=== PATIENT | female | born 1990 | race Caucasian/White ===

== ENCOUNTER 2023-05-01 17:43 | Outpatient (CLI) | payer OTHER | END 2023-05-01 18:58 | disposition home or self-care (01) | LOC: NST 17:43 | PROVIDERS: ATTEND Obstetrics & Gynecology Maternal & Fetal Medicine | DX: Z34.83 Encounter for supervision of other normal pregnancy, third trimester (principal) ==

== ENCOUNTER 2023-05-11 13:30 | Inpatient (IN) | payer OTHER ==
[~2023-05-11] VITALS: Ht 167.6 cm; Wt 3.2 kg
[2023-05-16] MEDS ORDERED: PRENATAL TABLE1 EAC1 PO (05:41)
[2023-05-16] MEDS ORDERED: IRON325 MG PO (05:41)
[2023-05-16 06:18] LABS: HEMATOCRIT 37.6 % (36.0-45.00); HEMOGLOBIN 12.8 g/dL (12.0-15.00); MEAN CELL VOLUME 83.3 fL (80.00-100.00); MEAN CORPUSCULAR HEMOGLOBIN 28.4 pg (27.00-32.0); PLATELET COUNT 174 K/uL (150-450); RED BLOOD COUNT 4.52 M/uL (4.00-6.00); RED CELL DISTRIBUTION WIDTH 16.8 % (11.5-14.5)
[2023-05-16 06:31] LABS: URINE APPEARANCE Clear; URINE BILIRRUBIN Negative (NEGATIVE); URINE BLOOD Trace; URINE COLOR Yellow; URINE GLUCOSE Negative (NEGATIVE); URINE LEUKOCYTE Negative; URINE NITRATE Negative; URINE UROBILINOGEN 0.2 E.U./dl
[2023-05-16 06:34] LABS: URINE BACTERIA 822.6 uL (0.0-1933); URINE EPITHELIAL CELLS 18.8 uL (0.0-38.8); URINE RBC 40.6 uL (0.0-20.8)
[2023-05-16 07:06] LABS: ALBUMIN 2.5 gm/dL (3.4-5.0); BILIRUBIN TOTAL 0.24 mg/dL (0.3-1.2); CALCIUM 9.1 mg/dL (8.5-10.1); CREATININE SERUM 0.46 mg/dL (0.55-1.02); GFR 158.44; GLOBULINA 3.4 G/DL (2.4-3.5); INR < 0.93; PARTIAL THROMBOPLASTIN TIME 29.3 SECONDS (22.0-34.0); POTASSIUM 3.77 mEq/L (3.5-5.1); PROTHROMBIN TIME 9.4 SECONDS (9.0-11.5); TOTAL PROTEIN 5.9 gm/dL (6.4-8.2)
[2023-05-16 07:17] LABS: FIBRINOGEN 542 mg/dL (187.0-446.0)
[2023-05-16 08:44] LABS: URINE PROTEIN 100 (NEGATIVE)
[2023-05-17 07:23] LABS: HEMATOCRIT 31.1 % (36.0-45.00); HEMOGLOBIN 10.5 g/dL (12.0-15.00); MEAN CELL VOLUME 83.6 fL (80.00-100.00); MEAN CORPUSCULAR HEMOGLOBIN 28.3 pg (27.00-32.0); MEAN CORPUSCULAR HGB CONC 33.9 g/dl (32.0-36.0); PLATELET COUNT 139 K/uL (150-450); RED BLOOD COUNT 3.72 M/uL (4.00-6.00); RED CELL DISTRIBUTION WIDTH 16.5 % (11.5-14.5)
== END 2023-05-19 14:37 | disposition home or self-care (01) | DRG 788 ==
LOC: LDR 05-16 04:26 → OB/GYN 05-16 04:26 → LDR 05-16 04:49 → OB/GYN 05-16 13:51
PROVIDERS: Obstetrics & Gynecology; ADMIT Obstetrics & Gynecology Maternal & Fetal Medicine; ATTEND Obstetrics & Gynecology Maternal & Fetal Medicine
PROC: 4A1HXCZ Monitoring of Products of Conception, Cardiac Rate, External Approach (ICD-10-PCS; 2023-05-16)
PROC: 10D00Z1 Extraction of Products of Conception, Low, Open Approach (ICD-10-PCS; principal; 2023-05-16 13:45)
DX: O82 Encounter for cesarean delivery without indication (principal); O62.1 Secondary uterine inertia; Z3A.39 39 weeks gestation of pregnancy; Z37.0 Single live birth; Z20.822 Contact with and (suspected) exposure to COVID-19